=== PATIENT | male | born 1980 | race Caucasian/White ===

== ENCOUNTER 2020-05-25 10:15 | Outpatient (RCR) | payer BC, SELFPAY ==
[2020-04-26 09:51] VITALS: BP 144/90; PULSE 86; RESP 16; TEMP 36.3; BMI 30.7
--- NOTE | 2020-04-26 10:46 | HP.PCM_ITS ---
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 The wound has open and closed over the years when he gets bumped or hit. Most recently it was opened about 2 weeks ago he saw his regular family doctor and was put on Bactrim DS no cultures were obtained at that time. We will obtain x-ray of the appiah make sure that no bone is involved though it does look more superficial and did obtain cultures to determine why he keeps opening. 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 Tobacco abuse. Chronic open wound left appiah Allergies/Adverse Reactions: Allergies No Known Allergies Allergy (Verified 04/26/20 10:06) Lives: Spouse/ Significant Other Smoking Status: Current every day smoker Alcohol: Heavy Review of Systems Constitutional: Denies: Chills, Fever Eyes: Denies: Blurred vision, Drainage, Pain HEENT: Denies: Difficulty Hearing, Difficulty Swallowing, Sore Throat, Visual Changes Cardiovascular: Denies: Chest Pain, Palpitations, Syncope Respiratory: Denies: Cough, Shortness of Breath Gastrointestinal: Denies: Abdominal Pain, Nausea, Vomiting Genitourinary: Denies: Dysuria, Frequency Musculoskeletal: Denies: Joint Pain, Muscle pain Skin: Reports: Wounds - Left appiah wound chronic from 15 years. Denies: Jaundice, Rash Neurological: Denies: Balance problems, Change in Speech, Difficulty swallowing, Focal weakness Psychiatric: Denies: Anxiety, Depression Endocrine: Denies: Change in Body Habitus Hematologic/ Lymphatic: Denies: Adenopathy - Physical Exam Vital Signs Temp Pulse Resp BP 97.3 F L 86 16 144/90 H 04/26/20 09:51 04/26/20 09:51 04/26/20 09:51 04/26/20 09:51 General: Oriented x3, Cooperative, Well developed HEENT: Atraumatic, PERRLA Oral: Moist Mucosa Neck: Supple, No JVD Lungs: Clear to auscultation, Normal air movement Cardiovascular: Regular rate, Regular Rhythm Abdomen: Bowel Sounds Present, Soft, Non Tender, No Hepato-splenomegaly Extremities: No clubbing, Edema Skin: Ulcer/ Wound - Left appiah wound Wound Measurements and Assessment WC - Nurse 1 - General Ulcer Measurement Start: 04/26/20 09:49 Freq: Status: Active Protocol: Activity Type Activity Date Activity User E-Sign Co-Sign Detail Recorded Client Recorded Date Recorded By Document 04/26/20 09:51 [facility] [id number] 04/26/20 10:04 [facility] 04/26/20 09:51 Wound Center Nurse 1 [Ulcer Assessment] #1- L APPIAH -Combined with other wound No -Current Size (cm) - Length 1.4 -Current Size (cm) - Width 1.1 -Current Size (cm) - Depth 0.2 -Total Square Cm 1.54 -Date of Last Picture (Recall this 04/26/20 field) -Photo Taken Yes -Epithelialization None Present -Tunneling No -Undermining/Tunneling No -Circular Undermining No -Exudate Amt Small -Exudate Type Serosanguineous -Wound Margin Distinct, Outline Attached -Granulation Amt Medium (34-66%) -Granulation Quality Red -Slough/Fibrin Yes -Necrosis Amt Medium (34-66%) -Necrotic Tissue Type Adherent Slough -Texture (Paty-wound Skin Appearance) Assessed, Scarring -Moisture (Paty-wound Skin Appearance Assessed ) -Color (Paty-wound Skin Appearance) Assessed -Temperature (Paty-wound Skin No Abnormality Appearance) (Pt Warm) -Tenderness on Palpation (Paty-wound No Skin Appearance) -Ulcer Cleansing Rinsed/ Irrigated with Saline -Foul Odor after Cleansing No -Anesthetic Used 5% Lidocaine Gel [Edema Assessment] -Lower Limb Edema Present Yes -Right Calf (cm) 38.4 -Right Ankle (cm) 22.5 -Left Calf (cm) 38.5 -Left Ankle (cm) 22.1 WC - Nurse 2 - General Ulcer CM Notes Start: 12/02/20 09:49 Freq: Status: Active Protocol: Activity Type Activity Date Activity User E-Sign Co-Sign Detail Recorded Client Recorded Date Recorded By Document 04/26/20 10:19 MW [id number] 04/26/20 10:24 MW 04/26/20 10:19 Wound Center Nurse 2 [Procedure/Treatment] #1- L APPIAH -Time 10:21 -Correct Patient Yes -Correct Side, Site, Position Yes -Correct Procedure Yes -Procedure Performed Yes -Type of Procedure Debridement -Clinical Debridement Subcutaneous -Tissue Removed Subcutaneous -Post Debridement (cm) - Length 1.5 -Post Debridement (cm) - Width 1.2 -Post Debridement (cm) - Depth 0.2 -Total Square (Post) (cm) 1.80 -Area of Debridement (cm) - Length 1.5 -Area of Debridement (cm) - Width 1.2 -Total Square (Area) (cm) 1.80 -Tunneling No -Undermining/Tunneling No -Circular Undermining No -Wound/Ulcer Outcome Not Healed -Ulcer Cleansing Rinsed/ Irrigated with Saline -Foul Odor after Cleansing No -Bioengineered Tissue No -Bleeding Controlled with Pressure -Offloading No -Debridement - Subq, 1st 20sq cm Yes [See Physician Procedure note for Specifics] Pain Scale: 0-10 Numeric [Pain] -Is Patient Pain Free? Yes WC - Nurse 3 - General Ulcer D/C NN Start: 04/26/20 09:49 Freq: Status: Active Protocol: Activity Type Activity Date Activity User E-Sign Co-Sign Detail Recorded Client Recorded Date Recorded By Document 04/26/20 10:28 MW [id number] 04/26/20 10:29 MW 04/26/20 10:28 Wound Care Nurse 3 [Wound Dressing] #1- L APPIAH -Ulcer Cleansing Rinsed/ Irrigated with Saline -Foul Odor after Cleansing No -Negative Pressure Wound Therapy N/A -Primary Dressing Applied Fibracol Plus 4x4,NonAdherent Contact Layer -Primary Dressing Covered/Secured Dry Gauze & with Roll Gauze, Secured with Tape -Fibracol Plus 4x4 1 [Compression Applied] Left -Lotion applied to leg before No compression wrap -Tubular Bandage Double Layer -Size of Tubigrip Used Size D -Size D ($) 1 -Stockings No Pain Scale: 0-10 Numeric [Pain] -Is Patient Pain Free? Yes Teaching: Wound Center [Wound Center Education] (Items with an * have Printed Materials Available- Please identify what is given to patient under the Teaching materials given to patient and caregiver Section. Dressing Your Wound -Person Taught Patient,Family -Teaching Method Discussion, Demonstration -Response to teaching Verbalize understanding WC - Visit Discharge [Visit Discharge Information] -Discharge Condition Stable -Ambulatory Status Ambulatory -Transportation Private Auto -Accompanied by SELF -Medication Reconcilliation completed No & provided to patient/care provider -Clinical Summary of Care Provided Yes Musculoskeletal: No Tenderness to Palpation of Joints or Extremities Lymphatic: No Cervical, Supraclavicular, or Inguinal Adenopathy Neurological: Cranial nerves II-XII grossly intact, Neuro grossly intact Psych/Mental Status: Normal Affect, Appropriate Debridement Note Post-Debridement Measurements/Treatment WC - Nurse 2 - General Ulcer CM Notes Start: 04/26/20 09:49 Freq: Status: Active Protocol: Activity Type Activity Date Activity User E-Sign Co-Sign Detail Recorded Client Recorded Date Recorded By Document 04/26/20 10:19 MW [id number] 04/26/20 10:24 MW 04/26/20 10:19 Wound Center Nurse 2 #1- L APPIAH -Time 10:21 -Correct Patient Yes -Correct Side, Site, Position Yes -Correct Procedure Yes -Procedure Performed Yes -Type of Procedure Debridement -Clinical Debridement Subcutaneous -Tissue Removed Subcutaneous -Post Debridement (cm) - Length 1.5 -Post Debridement (cm) - Width 1.2 -Post Debridement (cm) - Depth 0.2 -Total Square (Post) (cm) 1.80 -Area of Debridement (cm) - Length 1.5 -Area of Debridement (cm) - Width 1.2 -Total Square (Area) (cm) 1.80 -Tunneling No -Undermining/Tunneling No -Circular Undermining No -Wound/Ulcer Outcome Not Healed -Ulcer Cleansing Rinsed/ Irrigated with Saline -Foul Odor after Cleansing No -Bioengineered Tissue No -Bleeding Controlled with Pressure -Offloading No -Debridement - Subq, 1st 20sq cm Yes Pain Scale: 0-10 Numeric Is Patient Pain Free? Yes ERNESTO - Nurse 3 - General Ulcer D/C NN Start: 04/26/20 09:49 Freq: Status: Active Protocol: Activity Type Activity Date Activity User E-Sign Co-Sign Detail Recorded Client Recorded Date Recorded By Document 04/26/20 10:28 MW [id number] 04/26/20 10:29 MW 04/26/20 10:28 Wound Care Nurse 3 #1- L APPIAH -Ulcer Cleansing Rinsed/ Irrigated with Saline -Foul Odor after Cleansing No -Negative Pressure Wound Therapy N/A -Primary Dressing Applied Fibracol Plus 4x4,NonAdherent Contact Layer -Primary Dressing Covered/Secured with Dry Gauze & Roll Gauze, Secured with Tape -Fibracol Plus 4x4 1 Left -Lotion applied to leg before No compression wrap -Tubular Bandage Double Layer -Size of Tubigrip Used Size D -Size D ($) 1 -Stockings No Pain Scale: 0-10 Numeric Is Patient Pain Free? Yes Teaching: Wound Center Dressing Your Wound -Person Taught Patient,Family -Teaching Method Discussion, Demonstration -Response to teaching Verbalize understanding WC - Visit Discharge Discharge Condition Stable Ambulatory Status Ambulatory Transportation Private Auto Accompanied by SELF Medication Reconcilliation completed & No provided to patient/care provider Clinical Summary of Care Provided Yes Wound debrided: Left appiah wound Type of Debridement: Excisional debridement Anesthesia Used: 4% Lidocaine Solution Depth: Down to and including healthy tissue, in the subcutaneous layer Percentage of wound debrided: 100 Instrument Used: 7mm curette Tissue Removed: Fibrin and devitalized tissue Severity: Fat Layer Exposed Amount of bleeding with debridement: Mild Bleeding Controlled with: Pressure Patient tolerated procedure well Assessment/Plan Aerobic and anaerobic cultures obtained Active Problems 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 Alcohol abuser. Tobacco abuser Plan: Wash leg with hip Hibiclens or antibacterial soap. Apply Fibracol to wound base moistened with Adaptic over top cover with gauze and Carmen double layer Tubigrip over top. Follow-up in 1 week
[2020-05-04 15:15] VITALS: BP 139/68; PULSE 92; RESP 18; TEMP 36.6; BMI 30.7
--- NOTE | 2020-05-04 15:50 | PN.PCM_ITS ---
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 The wound has open and closed over the years when he gets bumped or hit. Most recently it was opened about 2 weeks ago he saw his regular family doctor and was put on Bactrim DS no cultures were obtained at that time. We will obtain x-ray of the appiah make sure that no bone is involved though it does look more superficial and did obtain cultures to determine why he keeps opening. Sent history that he drinks a sixpack of beer a day and he smokes 1 pack of cigarettes per day Progress of Wound: Pending x-ray, transfer of care to Chente Perkins DNP, [employer] ENGINE[employer], doing well no new concerns, culture was reviewed and negative - Physical Exam Vital Signs Temp Pulse Resp BP 98 F 92 18 139/68 H 05/04/20 15:15 05/04/20 15:15 05/04/20 15:15 05/04/20 15:15 General: Alert, Oriented x3, Cooperative, No apparent distress HEENT: PERRLA, EOMI Oral: Moist Mucosa Lungs: Clear to auscultation, Normal air movement Cardiovascular: Regular rate, Regular Rhythm Abdomen: Soft, Non Tender Extremities: No clubbing, No cyanosis, Edema - Generalized left lower extremity edema Skin: Ulcer/ Wound - See nursing documentation, slough and devitalized tissue present no signs of infection at this time Wound Measurements and Assessment WC - Nurse 1 - General Ulcer Measurement Start: 04/26/20 09:49 Freq: Status: Active Protocol: Activity Type Activity Date Activity User E-Sign Co-Sign Detail Recorded Client Recorded Date Recorded By Document 05/04/20 15:15 RB [id number] 05/04/20 15:17 RB 05/04/20 15:15 Wound Center Nurse 1 [Ulcer Assessment] #1- L APPIAH -Combined with other wound No -Current Size (cm) - Length 1.4 -Current Size (cm) - Width 1.3 -Current Size (cm) - Depth 0.1 -Total Square Cm 1.82 -Tunneling No -Undermining/Tunneling No -Circular Undermining No -Exudate Amt Small -Exudate Type Serosanguineous -Wound Margin Thickened & Rolled Under -Granulation Amt Medium (34-66%) -Granulation Quality [place] -Slough/Fibrin Yes -Necrosis Amt Medium (34-66%) -Necrotic Tissue Type Adherent Slough -Structure Exposed N/A -Texture (Paty-wound Skin Appearance) Assessed, Scarring -Moisture (Paty-wound Skin Appearance Assessed ) -Color (Paty-wound Skin Appearance) Assessed -Temperature (Paty-wound Skin No Abnormality Appearance) (Pt Warm) -Tenderness on Palpation (Paty-wound No Skin Appearance) -Ulcer Cleansing Wound Cleanser -Foul Odor after Cleansing No -Anesthetic Used 4% Lidocaine Solution [Edema Assessment] -Lower Limb Edema Present Yes -Left Calf (cm) 38.5 -Left Ankle (cm) 22 WC - Nurse 2 - General Ulcer CM Notes Start: 04/26/20 09:49 Freq: Status: Active Protocol: Activity Type Activity Date Activity User E-Sign Co-Sign Detail Recorded Client Recorded Date Recorded By Document 05/04/20 15:27 MW [id number] 05/04/20 15:30 MW 05/04/20 15:27 Wound Center Nurse 2 [Procedure/Treatment] #1- L APPIAH -Time 15:28 -Correct Patient Yes -Correct Side, Site, Position Yes -Correct Procedure Yes -Procedure Performed Yes -Type of Procedure Debridement -Clinical Debridement Subcutaneous -Tissue Removed Subcutaneous -Post Debridement (cm) - Length 1.4 -Post Debridement (cm) - Width 1.3 -Post Debridement (cm) - Depth 0.2 -Total Square (Post) (cm) 1.82 -Area of Debridement (cm) - Length 1.4 -Area of Debridement (cm) - Width 1.3 -Total Square (Area) (cm) 1.82 -Tunneling No -Undermining/Tunneling No -Circular Undermining No -Wound/Ulcer Outcome Not Healed -Ulcer Cleansing Rinsed/ Irrigated with Saline -Foul Odor after Cleansing No -Bioengineered Tissue No -Bleeding Controlled with Pressure -Offloading No -Treatment Response Procedure Tolerated Well -Debridement - Subq, 1st 20sq cm Yes [See Physician Procedure note for Specifics] Pain Scale: 0-10 Numeric [Pain] -Is Patient Pain Free? Yes - Nurse 3 - General Ulcer D/C NN Start: 04/26/20 09:49 Freq: Status: Active Protocol: Activity Type Activity Date Activity User E-Sign Co-Sign Detail Recorded Client Recorded Date Recorded By Document 05/04/20 15:38 DL [id number] 05/04/20 15:40 DL 05/04/20 15:38 Wound Care Nurse 3 [Wound Dressing] #1- L APPIAH -Ulcer Cleansing Rinsed/ Irrigated with Saline -Foul Odor after Cleansing No -Primary Dressing Applied Aquacel Extra -Primary Dressing Covered/Secured Dry Gauze with -Aquacel Extra 1 [Compression Applied] Left -Multi-Layered Wrap Application Multi-Layer Comp - Left ($) [Post Procedure Tolerated] -Treatment Response Procedure Tolerated Well Pain Scale: 0-10 Numeric [Pain] -Is Patient Pain Free? Yes - Visit Discharge [Visit Discharge Information] -Discharge Condition Stable -Ambulatory Status Ambulatory -Transportation Private Auto Neurological: Neuro grossly intact Psych/Mental Status: Normal Affect, Appropriate, Alert and oriented to time, place, person, mood and affect Debridement Note Post-Debridement Measurements/Treatment - Nurse 2 - General Ulcer CM Notes Start: 04/26/20 09:49 Freq: Status: Active Protocol: Activity Type Activity Date Activity User E-Sign Co-Sign Detail Recorded Client Recorded Date Recorded By Document 04/26/20 10:19 MW [id number] 04/26/20 10:24 MW Document 05/04/20 15:27 MW [id number] 05/04/20 15:30 MW 04/26/20 05/04/20 10:19 15:27 Wound Center Nurse 2 #1- L APPIAH -Time 10:21 15:28 -Correct Patient Yes Yes -Correct Side, Site, Position Yes Yes -Correct Procedure Yes Yes -Procedure Performed Yes Yes -Type of Procedure Debridement Debridement -Clinical Debridement Subcutaneous Subcutaneous -Tissue Removed Subcutaneous Subcutaneous -Post Debridement (cm) - Length 1.5 1.4 -Post Debridement (cm) - Width 1.2 1.3 -Post Debridement (cm) - Depth 0.2 0.2 -Total Square (Post) (cm) 1.80 1.82 -Area of Debridement (cm) - Length 1.5 1.4 -Area of Debridement (cm) - Width 1.2 1.3 -Total Square (Area) (cm) 1.80 1.82 -Tunneling No No -Undermining/Tunneling No No -Circular Undermining No No -Wound/Ulcer Outcome Not Healed Not Healed -Ulcer Cleansing Rinsed/ Rinsed/ Irrigated with Irrigated with Saline Saline -Foul Odor after Cleansing No No -Bioengineered Tissue No No -Bleeding Controlled with Pressure Pressure -Offloading No No -Treatment Response Procedure Tolerated Well -Debridement - Subq, 1st 20sq cm Yes Yes Pain Scale: 0-10 Numeric Is Patient Pain Free? Yes Yes - Nurse 3 - General Ulcer D/C NN Start: 04/26/20 09:49 Freq: Status: Active Protocol: Activity Type Activity Date Activity User E-Sign Co-Sign Detail Recorded Client Recorded Date Recorded By Document 04/26/20 10:28 MW [id number] 04/26/20 10:29 MW Document 05/04/20 15:38 DL [id number] 05/04/20 15:40 DL 04/26/20 05/04/20 10:28 15:38 Wound Care Nurse 3 #1- L APPIAH -Ulcer Cleansing Rinsed/ Rinsed/ Irrigated with Irrigated with Saline Saline -Foul Odor after Cleansing No No -Negative Pressure Wound Therapy N/A -Primary Dressing Applied Fibracol Plus Aquacel Extra 4x4,NonAdherent Contact Layer -Primary Dressing Covered/Secured with Dry Gauze & Dry Gauze Roll Gauze, Secured with Tape -Aquacel Extra 1 -Fibracol Plus 4x4 1 Left -Lotion applied to leg before No compression wrap -Multi-Layered Wrap Application Multi-Layer Comp - Left ($) -Tubular Bandage Double Layer -Size of Tubigrip Used Size D -Size D ($) 1 -Stockings No Treatment Response Procedure Tolerated Well Pain Scale: 0-10 Numeric Is Patient Pain Free? Yes Yes Teaching: Wound Center Dressing Your Wound -Person Taught Patient,Family -Teaching Method Discussion, Demonstration -Response to teaching Verbalize understanding WC - Visit Discharge Discharge Condition Stable Stable Ambulatory Status Ambulatory Ambulatory Transportation Private Auto Private Auto Accompanied by SELF Medication Reconcilliation completed & No provided to patient/care provider Clinical Summary of Care Provided Yes Wound debrided: Left lower extremity nonhealing ulcer Laterality: Left Type of Debridement: Excisional debridement Anesthesia Used: 5% Lidocaine Gel Depth: in the subcutaneous layer Percentage of wound debrided: 100 Instrument Used: 3mm curette Tissue Removed: Slough and devitalized tissue Severity: Fat Layer Exposed Amount of bleeding with debridement: Mild Bleeding Controlled with: Pressure Patient tolerated procedure well Assessment/Plan Active Problems 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 Alcohol abuser. Tobacco abuser Plan: The patient was seen and examined at the wound center today and was updated on the plan of care. A subcutaneous debridement was performed today. The patient tolerated the procedure well. The patients wound care will consist of: Application of Aquacel extra and 3M wrap for compression. Wound cultures were collected prior and negative, will hold off on blood work at this time due to cost. Patient educated on the importance of diet on wound healing and instructed to increase protein and vitamin C intake. Patient verbalized understanding. Discussed with patient that he most likely has delayed wound healing due to his significant smoking history and his alcohol abuse, advised cutting back on both if not complete cessation. Patient will follow up at wound healing center in one week or sooner if needed. This note was generated with [employer] (vitals.[employer]) dictation software. It may contain incorrect words, spelling, and punctuation that were not noted in checking the note before signing. [id number]: [id number] Lucy subq tissue 20 sq cm/<
[2020-05-11 15:10] VITALS: BP 143/100; PULSE 79; TEMP 36.1; BMI 30.7
--- NOTE | 2020-05-11 16:31 | PN.PCM_ITS ---
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 The wound has open and closed over the years when he gets bumped or hit. Most recently it was opened about 2 weeks ago he saw his regular family doctor and was put on Bactrim DS no cultures were obtained at that time. We will obtain x-ray of the appiah make sure that no bone is involved though it does look more superficial and did obtain cultures to determine why he keeps opening. Sent history that he drinks a sixpack of beer a day and he smokes 1 pack of cigarettes per day Progress of Wound: Pending x-ray, doing well with 3 m wrap, no new concerns, culture was reviewed and negative - Physical Exam Vital Signs Temp Pulse Resp BP 97.0 F L 79 18 143/100 H 05/11/20 15:10 05/11/20 15:10 05/04/20 15:15 05/11/20 15:10 General: Alert, Oriented x3, Cooperative, No apparent distress HEENT: Atraumatic Oral: Moist Mucosa Lungs: Clear to auscultation, Normal air movement Cardiovascular: Regular rate Abdomen: Soft, Non Tender Extremities: No clubbing, No cyanosis, No edema, Peripheral Pulses Normal Skin: Ulcer/ Wound - See nursing documentation, slough and devitalized tissue present, no signs of obvious infection at this time Wound Measurements and Assessment WC - Nurse 1 - General Ulcer Measurement Start: 04/26/20 09:49 Freq: Status: Active Protocol: Activity Type Activity Date Activity User E-Sign Co-Sign Detail Recorded Client Recorded Date Recorded By Document 05/11/20 15:10 [email or web address] [id number] 05/11/20 15:12 KR 05/11/20 15:10 Wound Center Nurse 1 [Ulcer Assessment] #1- L APPIAH -Current Size (cm) - Length 1.5 -Current Size (cm) - Width 1.5 -Current Size (cm) - Depth 0.1 -Total Square Cm 2.25 -Exudate Amt None Present -Wound Margin Distinct, Outline Attached -Granulation Amt None Present (0 %) -Necrosis Amt Large (67-100%) -Necrotic Tissue Type Adherent Slough -Texture (Paty-wound Skin Appearance) Assessed, Scarring -Moisture (Paty-wound Skin Appearance Assessed,Dry/ ) Scaly -Temperature (Paty-wound Skin No Abnormality Appearance) (Pt Warm) -Tenderness on Palpation (Paty-wound No Skin Appearance) -Ulcer Cleansing soap and water -Foul Odor after Cleansing No -Anesthetic Used 4% Lidocaine Solution [Edema Assessment] -Right Calf (cm) 38 -Right Ankle (cm) 22 WC - Nurse 2 - General Ulcer CM Notes Start: 04/26/20 09:49 Freq: Status: Active Protocol: Activity Type Activity Date Activity User E-Sign Co-Sign Detail Recorded Client Recorded Date Recorded By Document 05/11/20 15:43 MW [id number] 05/11/20 15:45 MW 05/11/20 15:43 Wound Center Nurse 2 [Procedure/Treatment] #1- L APPIAH -Time 15:43 -Correct Patient Yes -Correct Side, Site, Position Yes -Correct Procedure Yes -Procedure Performed Yes -Type of Procedure Debridement -Clinical Debridement Subcutaneous -Tissue Removed Subcutaneous -Post Debridement (cm) - Length 1.3 -Post Debridement (cm) - Width 1.1 -Post Debridement (cm) - Depth 0.2 -Total Square (Post) (cm) 1.43 -Area of Debridement (cm) - Length 1.3 -Area of Debridement (cm) - Width 1.1 -Total Square (Area) (cm) 1.43 -Tunneling No -Undermining/Tunneling No -Circular Undermining No -Wound/Ulcer Outcome Not Healed -Ulcer Cleansing Rinsed/ Irrigated with Saline -Foul Odor after Cleansing No -Bioengineered Tissue No -Bleeding Controlled with Pressure -Offloading No -Treatment Response Procedure Tolerated Well -Debridement - Subq, 1st 20sq cm Yes [See Physician Procedure note for Specifics] Pain Scale: 0-10 Numeric [Pain] -Is Patient Pain Free? Yes ERNESTO - Nurse 3 - General Ulcer D/C NN Start: 04/26/20 09:49 Freq: Status: Active Protocol: Activity Type Activity Date Activity User E-Sign Co-Sign Detail Recorded Client Recorded Date Recorded By Document 05/11/20 15:53 DL [id number] 05/11/20 15:55 DL 05/11/20 15:53 Wound Care Nurse 3 [Wound Dressing] #1- L APPIAH -Ulcer Cleansing Rinsed/ Irrigated with Saline -Foul Odor after Cleansing No -Primary Dressing Applied Promogran Yola Matter -Primary Dressing Covered/Secured Dry Gauze, with Secured with Tape -Promogran Yola Matter 1 [Compression Applied] Left -Multi-Layered Wrap Application Multi-Layer Comp - Left ($) [Post Procedure Tolerated] -Treatment Response Procedure Tolerated Well Pain Scale: 0-10 Numeric [Pain] -Is Patient Pain Free? Yes WC - Visit Discharge [Visit Discharge Information] -Discharge Condition Stable -Ambulatory Status Ambulatory -Transportation Private Auto Neurological: Neuro grossly intact Psych/Mental Status: Normal Affect, Appropriate, Alert and oriented to time, pl fredis, person, mood and affect Debridement Note Post-Debridement Measurements/Treatment WC - Nurse 2 - General Ulcer CM Notes Start: 04/26/20 09:49 Freq: Status: Active Protocol: Activity Type Activity Date Activity User E-Sign Co-Sign Detail Recorded Client Recorded Date Recorded By Document 04/26/20 10:19 MW [id number] 04/26/20 10:24 MW Document 05/04/20 15:27 MW [id number] 05/04/20 15:30 MW Document 05/11/20 15:43 MW [id number] 05/11/20 15:45 MW 04/26/20 05/04/20 05/11/20 10:19 15:27 15:43 Wound Center Nurse 2 #1- L APPIAH -Time 10:21 15:28 15:43 -Correct Patient Yes Yes Yes -Correct Side, Site, Position Yes Yes Yes -Correct Procedure Yes Yes Yes -Procedure Performed Yes Yes Yes -Type of Procedure Debridement Debridement Debridement -Clinical Debridement Subcutaneous Subcutaneous Subcutaneous -Tissue Removed Subcutaneous Subcutaneous Subcutaneous -Post Debridement (cm) - Length 1.5 1.4 1.3 -Post Debridement (cm) - Width 1.2 1.3 1.1 -Post Debridement (cm) - Depth 0.2 0.2 0.2 -Total Square (Post) (cm) 1.80 1.82 1.43 -Area of Debridement (cm) - Length 1.5 1.4 1.3 -Area of Debridement (cm) - Width 1.2 1.3 1.1 -Total Square (Area) (cm) 1.80 1.82 1.43 -Tunneling No No No -Undermining/Tunneling No No No -Circular Undermining No No No -Wound/Ulcer Outcome Not Healed Not Healed Not Healed -Ulcer Cleansing Rinsed/ Rinsed/ Rinsed/ Irrigated with Irrigated with Irrigated with Saline Saline Saline -Foul Odor after Cleansing No No No -Bioengineered Tissue No No No -Bleeding Controlled with Pressure Pressure Pressure -Offloading No No No -Treatment Response Procedure Procedure Tolerated Well Tolerated Well -Debridement - Subq, 1st 20sq cm Yes Yes Yes Pain Scale: 0-10 Numeric Is Patient Pain Free? Yes Yes Yes WC - Nurse 3 - General Ulcer D/C NN Start: 04/26/20 09:49 Freq: Status: Active Protocol: Activity Type Activity Date Activity User E-Sign Co-Sign Detail Recorded Client Recorded Date Recorded By Document 04/26/20 10:28 MW [id number] 04/26/20 10:29 MW Document 05/04/20 15:38 DL [id number] 05/04/20 15:40 DL Document 05/11/20 15:53 DL [id number] 05/11/20 15:55 DL 04/26/20 05/04/20 05/11/20 10:28 15:38 15:53 Wound Care Nurse 3 #1- L APPIAH -Ulcer Cleansing Rinsed/ Rinsed/ Rinsed/ Irrigated with Irrigated with Irrigated with Saline Saline Saline -Foul Odor after Cleansing No No No -Negative Pressure Wound Therapy N/A -Primary Dressing Applied Fibracol Plus Aquacel Extra Promogran 4x4,NonAdherent Yola Matter Contact Layer -Primary Dressing Covered/Secured with Dry Gauze & Dry Gauze Dry Gauze, Roll Gauze, Secured with Secured with Tape Tape -Aquacel Extra 1 -Fibracol Plus 4x4 1 -Promogran Yola Matter 1 Left -Lotion applied to leg before No compression wrap -Multi-Layered Wrap Application Multi-Layer Multi-Layer Comp - Left ($) Comp - Left ($) -Tubular Bandage Double Layer -Size of Tubigrip Used Size D -Size D ($) 1 -Stockings No Treatment Response Procedure Procedure Tolerated Well Tolerated Well Pain Scale: 0-10 Numeric Is Patient Pain Free? Yes Yes Yes Teaching: Wound Center Dressing Your Wound -Person Taught Patient,Family -Teaching Method Discussion, Demonstration -Response to teaching Verbalize understanding WC - Visit Discharge Discharge Condition Stable Stable Stable Ambulatory Status Ambulatory Ambulatory Ambulatory Transportation Private Auto Private Auto Private Auto Accompanied by SELF Medication Reconcilliation completed & No provided to patient/care provider Clinical Summary of Care Provided Yes Wound debrided: Nonhealing ulcer left lower extremity Type of Debridement: Excisional debridement Anesthesia Used: 5% Lidocaine Gel Depth: in the subcutaneous layer Percentage of wound debrided: 100 Instrument Used: 5mm curette Tissue Removed: Slough and devitalized tissue Severity: Fat Layer Exposed Amount of bleeding with debridement: Mild Bleeding Controlled with: Pressure Patient tolerated procedure well Assessment/Plan Active Problems 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 Alcohol abuser. Tobacco abuser Plan: The patient was seen and examined at the wound center today and was upd ated on the plan of care. A subcutaneous debridement was performed today. The patient tolerated the procedure well. The patients wound care will consist of: Application of Yola and 3M wrap for compression. Wound cultures were collected prior and negative, will hold off on blood work at this time due to cost. Patient educated on the importance of diet on wound healing and instructed to increase protein and vitamin C intake. Patient verbalized understanding. Discussed with patient that he most likely has delayed wound healing due to his significant smoking history and his alcohol abuse, advised cutting back on both if not complete cessation. Patient will follow up at wound healing center in one week or sooner if needed. This note was generated with [employer] dictation software. It may contain incorrect words, spelling, and punctuation that were not noted in checking the note before signing. [id number]: [id number] Lucy subq tissue 20 sq cm/<
[2020-05-18 09:19] VITALS: BP 127/64; PULSE 99; RESP 18; TEMP 36.8; BMI 30.7
--- NOTE | 2020-05-18 11:09 | PN.PCM_ITS ---
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 [employer] approximately 15 years ago and injured his left appiah at that time. The wound has open and closed over the years when he gets bumped or hit. Most recently it was opened about 2 weeks ago he saw his regular family doctor and was put on Bactrim DS no cultures were obtained at that time. We will obtain x-ray of the appiah make sure that no bone is involved though it does look more superficial and did obtain cultures to determine why he keeps opening. Sent history that he drinks a sixpack of beer a day and he smokes 1 pack of cigarettes per day Progress of Wound: Courtesy visit for Chente Perkins NP. New concerns at this time. Improving. - Physical Exam Vital Signs Temp Pulse Resp BP 98.3 F 99 18 127/64 H 05/18/20 09:19 05/18/20 09:19 05/18/20 09:19 05/18/20 09:19 General: Alert, Oriented x3, Cooperative, No apparent distress HEENT: Atraumatic, Normocephalic Oral: Moist Mucosa Neck: Supple Lungs: Normal air movement Extremities: No cyanosis, Edema Skin: Ulcer/ Wound Wound Measurements and Assessment WC - Nurse 1 - General Ulcer Measurement Start: 04/26/20 09:49 Freq: Status: Active Protocol: Activity Type Activity Date Activity User E-Sign Co-Sign Detail Recorded Client Recorded Date Recorded By Document 05/18/20 09:19 DL [id number] 05/18/20 09:28 DL 05/18/20 09:19 Wound Center Nurse 1 [Ulcer Assessment] #1- L APPIAH -Current Size (cm) - Length 1 -Current Size (cm) - Width 0.9 -Current Size (cm) - Depth 0.1 -Total Square Cm 0.9 -Photo Taken No -Exudate Amt Small -Exudate Type Serosanguineous -Wound Margin Distinct, Outline Attached -Granulation Amt Large (67-100%) -Necrosis Amt None Present (0 %) -Structure Exposed N/A -Texture (Paty-wound Skin Appearance) Scarring -Moisture (Paty-wound Skin Appearance No Abnormality ) -Color (Paty-wound Skin Appearance) Hemosiderin Staining -Temperature (Paty-wound Skin No Abnormality Appearance) (Pt Warm) -Tenderness on Palpation (Paty-wound No Skin Appearance) -Ulcer Cleansing Rinsed/ Irrigated with Saline -Foul Odor after Cleansing No -Anesthetic Used 5% Lidocaine Gel [Edema Assessment] -Left Calf (cm) 36 -Left Ankle (cm) 21 WC - Nurse 2 - General Ulcer CM Notes Start: 04/26/20 09:49 Freq: Status: Active Protocol: Activity Type Activity Date Activity User E-Sign Co-Sign Detail Recorded Client Recorded Date Recorded By Document 05/18/20 09:48 MW [id number] 05/18/20 09:50 MW 05/18/20 09:48 Wound Center Nurse 2 [Procedure/Treatment] #1- L APPIAH -Time 09:48 -Correct Patient Yes -Correct Side, Site, Position Yes -Correct Procedure Yes -Procedure Performed Yes -Type of Procedure Debridement -Clinical Debridement Subcutaneous -Tissue Removed Subcutaneous -Post Debridement (cm) - Length 1.0 -Post Debridement (cm) - Width 0.9 -Post Debridement (cm) - Depth 0.1 -Total Square (Post) (cm) 0.90 -Area of Debridement (cm) - Length 1.0 -Area of Debridement (cm) - Width 0.9 -Total Square (Area) (cm) 0.90 -Tunneling No -Undermining/Tunneling No -Circular Undermining No -Wound/Ulcer Outcome Not Healed -Ulcer Cleansing Rinsed/ Irrigated with Saline -Foul Odor after Cleansing No -Bioengineered Tissue No -Bleeding Controlled with Pressure -Offloading No -Treatment Response Procedure Tolerated Well -Debridement - Subq, 1st 20sq cm Yes [See Physician Procedure note for Specifics] Pain Scale: 0-10 Numeric [Pain] -Is Patient Pain Free? Yes Musculoskeletal: No Muscle Wasting Neurological: Cranial nerves II-XII grossly intact Psych/Mental Status: Normal Affect Debridement Note Post-Debridement Measurements/Treatment WC - Nurse 2 - General Ulcer CM Notes Start: 04/26/20 09:49 Freq: Status: Active Protocol: Activity Type Activity Date Activity User E-Sign Co-Sign Detail Recorded Client Recorded Date Recorded By Document 04/26/20 10:19 MW [id number] 04/26/20 10:24 MW Document 05/04/20 15:27 MW [id number] 05/04/20 15:30 MW Document 05/11/20 15:43 MW [id number] 05/11/20 15:45 MW Document 05/18/20 09:48 MW [id number] 05/18/20 09:50 MW 04/26/20 05/04/20 05/11/20 10:19 15:27 15:43 Wound Center Nurse 2 #1- L APPIAH -Time 10:21 15:28 15:43 -Correct Patient Yes Yes Yes -Correct Side, Site, Position Yes Yes Yes -Correct Procedure Yes Yes Yes -Procedure Performed Yes Yes Yes -Type of Procedure Debridement Debridement Debridement -Clinical Debridement Subcutaneous Subcutaneous Subcutaneous -Tissue Removed Subcutaneous Subcutaneous Subcutaneous -Post Debridement (cm) - Length 1.5 1.4 1.3 -Post Debridement (cm) - Width 1.2 1.3 1.1 -Post Debridement (cm) - Depth 0.2 0.2 0.2 -Total Square (Post) (cm) 1.80 1.82 1.43 -Area of Debridement (cm) - Length 1.5 1.4 1.3 -Area of Debridement (cm) - Width 1.2 1.3 1.1 -Total Square (Area) (cm) 1.80 1.82 1.43 -Tunneling No No No -Undermining/Tunneling No No No -Circular Undermining No No No -Wound/Ulcer Outcome Not Healed Not Healed Not Healed -Ulcer Cleansing Rinsed/ Rinsed/ Rinsed/ Irrigated with Irrigated with Irrigated with Saline Saline Saline -Foul Odor after Cleansing No No No -Bioengineered Tissue No No No -Bleeding Controlled with Pressure Pressure Pressure -Offloading No No No -Treatment Response Procedure Procedure Tolerated Well Tolerated Well -Debridement - Subq, 1st 20sq cm Yes Yes Yes Pain Scale: 0-10 Numeric Is Patient Pain Free? Yes Yes Yes 05/18/20 09:48 Wound Center Nurse 2 #1- L APPIAH -Time 09:48 -Correct Patient Yes -Correct Side, Site, Position Yes -Correct Procedure Yes -Procedure Performed Yes -Type of Procedure Debridement -Clinical Debridement Subcutaneous -Tissue Removed Subcutaneous -Post Debridement (cm) - Length 1.0 -Post Debridement (cm) - Width 0.9 -Post Debridement (cm) - Depth 0.1 -Total Square (Post) (cm) 0.90 -Area of Debridement (cm) - Length 1.0 -Area of Debridement (cm) - Width 0.9 -Total Square (Area) (cm) 0.90 -Tunneling No -Undermining/Tunneling No -Circular Undermining No -Wound/Ulcer Outcome Not Healed -Ulcer Cleansing Rinsed/ Irrigated with Saline -Foul Odor after Cleansing No -Bioengineered Tissue No -Bleeding Controlled with Pressure -Offloading No -Treatment Response Procedure Tolerated Well -Debridement - Subq, 1st 20sq cm Yes Pain Scale: 0-10 Numeric Is Patient Pain Free? Yes WC - Nurse 3 - General Ulcer D/C NN Start: 04/26/20 09:49 Freq: Status: Active Protocol: Activity Type Activity Date Activity User E-Sign Co-Sign Detail Recorded Client Recorded Date Recorded By Document 04/26/20 10:28 MW [id number] 04/26/20 10:29 MW Document 05/04/20 15:38 DL [id number] 05/04/20 15:40 DL Document 05/11/20 15:53 DL [id number] 05/11/20 15:55 DL 04/26/20 05/04/20 05/11/20 10:28 15:38 15:53 Wound Care Nurse 3 #1- L APPIAH -Ulcer Cleansing Rinsed/ Rinsed/ Rinsed/ Irrigated with Irrigated with Irrigated with Saline Saline Saline -Foul Odor after Cleansing No No No -Negative Pressure Wound Therapy N/A -Primary Dressing Applied Fibracol Plus Aquacel Extra Promogran 4x4,NonAdherent Yola Matter Contact Layer -Primary Dressing Covered/Secured with Dry Gauze & Dry Gauze Dry Gauze, Roll Gauze, Secured with Secured with Tape Tape -Aquacel Extra 1 -Fibracol Plus 4x4 1 -Promogran Yola Matter 1 Left -Lotion applied to leg before No compression wrap -Multi-Layered Wrap Application Multi-Layer Multi-Layer Comp - Left ($) Comp - Left ($) -Tubular Bandage Double Layer -Size of Tubigrip Used Size D -Size D ($) 1 -Stockings No Treatment Response Procedure Procedure Tolerated Well Tolerated Well Pain Scale: 0-10 Numeric Is Patient Pain Free? Yes Yes Yes Teaching: Wound Center Dressing Your Wound -Person Taught Patient,Family -Teaching Method Discussion, Demonstration -Response to teaching Verbalize understanding WC - Visit Discharge Discharge Condition Stable Stable Stable Ambulatory Status Ambulatory Ambulatory Ambulatory Transportation Private Auto Private Auto Private Auto Accompanied by SELF Medication Reconcilliation completed & No provided to patient/care provider Clinical Summary of Care Provided Yes Wound debrided: Left leg Type of Debridement: Excisional debridement Anesthesia Used: 4% Lidocaine Solution Depth: Down to and including healthy tissue, in the subcutaneous layer Percentage of wound debrided: 100 Instrument Used: 5mm curette Tissue Removed: Slough and devitalized tissue Severity: Fat Layer Exposed Amount of bleeding with debridement: Mild Bleeding Controlled with: Pressure Patient tolerated procedure well Assessment/Plan Active Problems 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 Alcohol abuser. Tobacco abuser Plan: Debridement done as documented above. Procedure was well-tolerated. Improving. Continue Promogran with 3M wrap. Leave in place for a week. Elevate lower extremities when seated and in bed. Increase protein intake. Continue other wound care modalities. Follow-up in a week. His questions were answered and he was advised to call with any further questions or concerns. This note was generated with [employer] dictation software. It may contain incorrect words, spelling, and punctuation that were not noted in checking the note before signing. 111xxx-[id number]: [id number] Lucy subq tissue 20 sq cm/<
[2020-05-25 10:22] VITALS: BP 129/86; PULSE 99; RESP 18; TEMP 36.6; BMI 30.7
--- NOTE | 2020-05-25 11:13 | PCM.WC.PN ---
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 The wound has open and closed over the years when he gets bumped or hit. Most recently it was opened about 2 weeks ago he saw his regular family doctor and was put on Bactrim DS no cultures were obtained at that time. We will obtain x-ray of the appiah make sure that no bone is involved though it does look more superficial and did obtain cultures to determine why he keeps opening. Sent history that he drinks a sixpack of beer a day and he smokes 1 pack of cigarettes per day Progress of Wound: Courtesy visit for Chente Perkins NP. New concerns at this time. Improving. - Physical Exam Vital Signs Temp Pulse Resp BP 98 F 99 18 129/86 H 05/25/20 10:22 05/25/20 10:22 05/25/20 10:22 05/25/20 10:22 General: Alert, Oriented x3, Cooperative, No apparent distress HEENT: Atraumatic, Normocephalic Oral: Moist Mucosa Neck: Supple Lungs: Normal air movement Extremities: No cyanosis Skin: Ulcer/ Wound Wound Measurements and Assessment WC - Nurse 1 - General Ulcer Measurement Start: 04/26/20 09:49 Freq: Status: Active Protocol: Activity Type Activity Date Activity User E-Sign Co-Sign Detail Recorded Client Recorded Date Recorded By Document 05/25/20 10:22 DL [id number] 05/25/20 10:29 DL 05/25/20 10:22 Wound Center Nurse 1 [Ulcer Assessment] #1- L APPIAH -Current Size (cm) - Length 1 -Current Size (cm) - Width 0.8 -Current Size (cm) - Depth 0.2 -Total Square Cm 0.8 -Photo Taken No -Exudate Amt None Present -Wound Margin Distinct, Outline Attached -Granulation Amt Large (67-100%) -Granulation Quality Red -Necrosis Amt Small (1-33%) -Necrotic Tissue Type Adherent Slough -Structure Exposed N/A -Texture (Paty-wound Skin Appearance) Scarring -Moisture (Paty-wound Skin Appearance No Abnormality ) -Color (Paty-wound Skin Appearance) No Abnormality -Temperature (Paty-wound Skin No Abnormality Appearance) (Pt Warm) -Tenderness on Palpation (Paty-wound No Skin Appearance) -Ulcer Cleansing Wound Cleanser -Foul Odor after Cleansing No -Anesthetic Used 4% Lidocaine Solution [Edema Assessment] -Left Calf (cm) 36 -Left Ankle (cm) 22.2 WC - Nurse 2 - General Ulcer CM Notes Start: 04/26/20 09:49 Freq: Status: Active Protocol: Activity Type Activity Date Activity User E-Sign Co-Sign Detail Recorded Client Recorded Date Recorded By Document 05/25/20 10:42 MW [id number] 05/25/20 10:44 MW 05/25/20 10:42 Wound Center Nurse 2 [Procedure/Treatment] #1- L APPIAH -Time 10:43 -Correct Patient Yes -Correct Side, Site, Position Yes -Correct Procedure Yes -Procedure Performed Yes -Type of Procedure Debridement -Clinical Debridement Subcutaneous -Tissue Removed Subcutaneous -Post Debridement (cm) - Length 0.6 -Post Debridement (cm) - Width 0.7 -Post Debridement (cm) - Depth 0.1 -Total Square (Post) (cm) 0.42 -Area of Debridement (cm) - Length 0.6 -Area of Debridement (cm) - Width 0.7 -Total Square (Area) (cm) 0.42 -Tunneling No -Undermining/Tunneling No -Circular Undermining No -Wound/Ulcer Outcome Not Healed -Ulcer Cleansing Rinsed/ Irrigated with Saline -Foul Odor after Cleansing No -Bioengineered Tissue No -Bleeding Controlled with Pressure -Offloading No -Treatment Response Procedure Tolerated Well -Debridement - Subq, 1st 20sq cm Yes [See Physician Procedure note for Specifics] Pain Scale: 0-10 Numeric [Pain] -Is Patient Pain Free? Yes ERNESTO - Nurse 3 - General Ulcer D/C NN Start: 04/26/20 09:49 Freq: Status: Active Protocol: Activity Type Activity Date Activity User E-Sign Co-Sign Detail Recorded Client Recorded Date Recorded By Document 05/25/20 10:52 DL [id number] 05/25/20 10:53 DL 05/25/20 10:52 Wound Care Nurse 3 [Wound Dressing] #1- L APPIAH -Ulcer Cleansing Rinsed/ Irrigated with Saline -Foul Odor after Cleansing No -Primary Dressing Applied Promogran Yola Matter -Primary Dressing Covered/Secured Dry Gauze with -Promogran Yola Matter 1 [Compression Applied] Left -Multi-Layered Wrap Application Multi-Layer Comp - Left ($) [Post Procedure Tolerated] -Treatment Response Procedure Tolerated Well Pain Scale: 0-10 Numeric [Pain] -Is Patient Pain Free? Yes WC - Visit Discharge [Visit Discharge Information] -Discharge Condition Stable -Ambulatory Status Ambulatory -Transportation Private Auto Musculoskeletal: No Muscle Wasting Neurological: Cranial nerves II-XII grossly intact Psych/Mental Status: Normal Affect Debridement Note Post-Debridement Measurements/Treatment WC - Nurse 2 - General Ulcer CM Notes Start: 04/26/20 09:49 Freq: Status: Active Protocol: Activity Type Activity Date Activity User E-Sign Co-Sign Detail Recorded Client Recorded Date Recorded By Document 04/26/20 10:19 MW [id number] 04/26/20 10:24 MW Document 05/04/20 15:27 MW [id number] 05/04/20 15:30 MW Document 05/11/20 15:43 MW [id number] 05/11/20 15:45 MW Document 05/18/20 09:48 MW [id number] 05/18/20 09:50 MW Document 05/25/20 10:42 MW [id number] 05/25/20 10:44 MW 04/26/20 05/04/20 05/11/20 10:19 15:27 15:43 Wound Center Nurse 2 #1- L APPIAH -Time 10:21 15:28 15:43 -Correct Patient Yes Yes Yes -Correct Side, Site, Position Yes Yes Yes -Correct Procedure Yes Yes Yes -Procedure Performed Yes Yes Yes -Type of Procedure Debridement Debridement Debridement -Clinical Debridement Subcutaneous Subcutaneous Subcutaneous -Tissue Removed Subcutaneous Subcutaneous Subcutaneous -Post Debridement (cm) - Length 1.5 1.4 1.3 -Post Debridement (cm) - Width 1.2 1.3 1.1 -Post Debridement (cm) - Depth 0.2 0.2 0.2 -Total Square (Post) (cm) 1.80 1.82 1.43 -Area of Debridement (cm) - Length 1.5 1.4 1.3 -Area of Debridement (cm) - Width 1.2 1.3 1.1 -Total Square (Area) (cm) 1.80 1.82 1.43 -Tunneling No No No -Undermining/Tunneling No No No -Circular Undermining No No No -Wound/Ulcer Outcome Not Healed Not Healed Not Healed -Ulcer Cleansing Rinsed/ Rinsed/ Rinsed/ Irrigated with Irrigated with Irrigated with Saline Saline Saline -Foul Odor after Cleansing No No No -Bioengineered Tissue No No No -Bleeding Controlled with Pressure Pressure Pressure -Offloading No No No -Treatment Response Procedure Procedure Tolerated Well Tolerated Well -Debridement - Subq, 1st 20sq cm Yes Yes Yes Pain Scale: 0-10 Numeric Is Patient Pain Free? Yes Yes Yes 05/18/20 05/25/20 09:48 10:42 Wound Center Nurse 2 #1- L APPIAH -Time 09:48 10:43 -Correct Patient Yes Yes -Correct Side, Site, Position Yes Yes -Correct Procedure Yes Yes -Procedure Performed Yes Yes -Type of Procedure Debridement Debridement -Clinical Debridement Subcutaneous Subcutaneous -Tissue Removed Subcutaneous Subcutaneous -Post Debridement (cm) - Length 1.0 0.6 -Post Debridement (cm) - Width 0.9 0.7 -Post Debridement (cm) - Depth 0.1 0.1 -Total Square (Post) (cm) 0.90 0.42 -Area of Debridement (cm) - Length 1.0 0.6 -Area of Debridement (cm) - Width 0.9 0.7 -Total Square (Area) (cm) 0.90 0.42 -Tunneling No No -Undermining/Tunneling No No -Circular Undermining No No -Wound/Ulcer Outcome Not Healed Not Healed -Ulcer Cleansing Rinsed/ Rinsed/ Irrigated with Irrigated with Saline Saline -Foul Odor after Cleansing No No -Bioengineered Tissue No No -Bleeding Controlled with Pressure Pressure -Offloading No No -Treatment Response Procedure Procedure Tolerated Well Tolerated Well -Debridement - Subq, 1st 20sq cm Yes Yes Pain Scale: 0-10 Numeric Is Patient Pain Free? Yes Yes WC - Nurse 3 - General Ulcer D/C NN Start: 04/26/20 09:49 Freq: Status: Active Protocol: Activity Type Activity Date Activity User E-Sign Co-Sign Detail Recorded Client Recorded Date Recorded By Document 04/26/20 10:28 MW [id number] 04/26/20 10:29 MW Document 05/04/20 15:38 DL [id number] 05/04/20 15:40 DL Document 05/11/20 15:53 DL [id number] 05/11/20 15:55 DL Document 05/25/20 10:52 DL [id number] 05/25/20 10:53 DL 04/26/20 05/04/20 05/11/20 10:28 15:38 15:53 Wound Care Nurse 3 #1- L APPIAH -Ulcer Cleansing Rinsed/ Rinsed/ Rinsed/ Irrigated with Irrigated with Irrigated with Saline Saline Saline -Foul Odor after Cleansing No No No -Negative Pressure Wound Therapy N/A -Primary Dressing Applied Fibracol Plus Aquacel Extra Promogran 4x4,NonAdherent Yola Matter Contact Layer -Primary Dressing Covered/Secured with Dry Gauze & Dry Gauze Dry Gauze, Roll Gauze, Secured with Secured with Tape Tape -Aquacel Extra 1 -Fibracol Plus 4x4 1 -Promogran Yola Matter 1 Left -Lotion applied to leg before No compression wrap -Multi-Layered Wrap Application Multi-Layer Multi-Layer Comp - Left ($) Comp - Left ($) -Tubular Bandage Double Layer -Size of Tubigrip Used Size D -Size D ($) 1 -Stockings No Treatment Response Procedure Procedure Tolerated Well Tolerated Well Pain Scale: 0-10 Numeric Is Patient Pain Free? Yes Yes Yes Teaching: Wound Center Dressing Your Wound -Person Taught Patient,Family -Teaching Method Discussion, Demonstration -Response to teaching Verbalize understanding WC - Visit Discharge Discharge Condition Stable Stable Stable Ambulatory Status Ambulatory Ambulatory Ambulatory Transportation Private Auto Private Auto Private Auto Accompanied by SELF Medication Reconcilliation completed & No provided to patient/care provider Clinical Summary of Care Provided Yes 05/25/20 10:52 Wound Care Nurse 3 #1- L APPIAH -Ulcer Cleansing Rinsed/ Irrigated with Saline -Foul Odor after Cleansing No -Negative Pressure Wound Therapy -Primary Dressing Applied Promogran Yola Matter -Primary Dressing Covered/Secured with Dry Gauze -Aquacel Extra -Fibracol Plus 4x4 -Promogran Yola Matter 1 Left -Lotion applied to leg before compression wrap -Multi-Layered Wrap Application Multi-Layer Comp - Left ($) -Tubular Bandage -Size of Tubigrip Used -Size D ($) -Stockings Treatment Response Procedure Tolerated Well Pain Scale: 0-10 Numeric Is Patient Pain Free? Yes Teaching: Wound Center Dressing Your Wound -Person Taught -Teaching Method -Response to teaching WC - Visit Discharge Discharge Condition Stable Ambulatory Status Ambulatory Transportation Private Auto Accompanied by Medication Reconcilliation completed & provided to patient/care provider Clinical Summary of Care Provided Wound debrided: Left lower extremity Type of Debridement: Excisional debridement Anesthesia Used: 4% Lidocaine Solution Depth: Down to and including healthy tissue, in the subcutaneous layer Percentage of wound debrided: 100 Instrument Used: 5mm curette Tissue Removed: Slough and devitalized tissue Severity: Fat Layer Exposed Amount of bleeding with debridement: Mild Bleeding Controlled with: Pressure Patient tolerated procedure well Assessment/Plan Active Problems Nonhealing nonsurgical wound with fat layer exposed (Chronic) ETOH abuse (Acute) Tobacco dependence (Acute) Ulcer of left lower extremity with fat layer exposed (Chronic) Assessment: Nonhealing nonsurgical chronic wound of the left appiah. Alcohol abuser. Tobacco abuser Plan: Debridement done as documented above. Procedure was well-tolerated. Improving. Continue Promogran with 3M wrap. Leave in place for a week. Elevate lower extremities when seated and in bed. Increase protein intake. Continue other wound care modalities. Follow-up in a week. His questions were answered and he was advised to call with any further questions or concerns. This note was generated with [employer] dictation software. It may contain incorrect words, spelling, and punctuation that were not noted in checking the note before signing. [id number]: [id number] Lucy subq tissue 20 sq cm/<
== END 2020-05-25 23:59 ==
LOC: WC 10:15
PROVIDERS: PCP Nurse Practitioner Primary Care; Referring Provider Nurse Practitioner Primary Care; Visit Provider Nurse Practitioner
DX: L97.922 Non-pressure chronic ulcer of unspecified part of left lower leg with fat layer exposed (principal); S81.802A Unspecified open wound, left lower leg, initial encounter; F10.10 Alcohol abuse, uncomplicated; F17.210 Nicotine dependence, cigarettes, uncomplicated
CPT/HCPCS: 11042; 29581; 87070; 87075; 87205; 99203; G0463

== ENCOUNTER 2020-06-08 15:15 | Outpatient (RCR) | payer BC, SELFPAY ==
[2020-05-26 00:08] VITALS: BP 129/86; PULSE 99; RESP 18; TEMP 36.6
[2020-06-01 15:17] VITALS: BP 142/95; PULSE 104; RESP 16; TEMP 36.4; BMI 30.7
--- NOTE | 2020-06-01 21:17 | PCM.WC.PN ---
(1) Ulcer of left lower extremity with fat layer exposed Status: Chronic Code(s): L97.922 - Non-pressure chronic ulcer of unspecified part of left lower leg with fat layer exposed (2) ETOH abuse Status: Acute Code(s): F10.10 - Alcohol abuse, uncomplicated (3) Tobacco dependence Status: Acute Code(s): F17.200 - Nicotine dependence, unspecified, uncomplicated Type of Wound Date of Service: 06/01/20 Chief Complaint: Left appiah wound History of Wound: 39-year-old white male graduate from [employer] approximately 15 years ago and injured his left appiah at that time. The wound has open and closed over the years when he gets bumped or hit. Most recently it was opened about 2 weeks ago he saw his regular family doctor and was put on Bactrim DS no cultures were obtained at that time. We will obtain x-ray of the appiah make sure that no bone is involved though it does look more superficial and did obtain cultures to determine why he keeps opening. Sent history that he drinks a sixpack of beer a day and he smokes 1 pack of cigarettes per day Progress of Wound: New concerns at this time. Improving. - Physical Exam Vital Signs Temp Pulse Resp BP 97.6 F L 104 H 16 142/95 H 06/01/20 15:17 06/01/20 15:17 06/01/20 15:17 06/01/20 15:17 General: Alert, Oriented x3, Cooperative, No apparent distress HEENT: Atraumatic Oral: Moist Mucosa Neck: Supple Lungs: Clear to auscultation, Normal air movement Cardiovascular: Regular rate Abdomen: Soft, Non Tender Extremities: No clubbing, No cyanosis, No edema Skin: Ulcer/ Wound - see nursing documentation, slough and devitalized tissue present, no signs of infection at this time Wound Measurements and Assessment WC - Nurse 1 - General Ulcer Measurement Start: 06/01/20 15:17 Freq: Status: Active Protocol: Activity Type Activity Date Activity User E-Sign Co-Sign Detail Recorded Client Recorded Date Recorded By Document 06/01/20 15:17 [facility] [id number] 06/01/20 15:23 [facility] 06/01/20 15:17 Wound Center Nurse 1 [Ulcer Assessment] #1- L APPIAH -Combined with other wound No -Current Size (cm) - Length 0.8 -Current Size (cm) - Width 0.5 -Current Size (cm) - Depth 0.1 -Total Square Cm 0.40 -Photo Taken No -Epithelialization None Present -Tunneling No -Undermining/Tunneling No -Circular Undermining No -Exudate Amt None Present -Wound Margin Distinct, Outline Attached -Granulation Amt None Present (0 %) -Slough/Fibrin Yes -Necrosis Amt Large (67-100%) -Necrotic Tissue Type Eschar -Texture (Paty-wound Skin Appearance) Assessed, Scarring -Moisture (Paty-wound Skin Appearance Assessed,Dry/ ) Scaly -Color (Paty-wound Skin Appearance) Assessed -Temperature (Paty-wound Skin No Abnormality Appearance) (Pt Warm) -Tenderness on Palpation (Paty-wound No Skin Appearance) -Ulcer Cleansing Rinsed/ Irrigated with Saline -Foul Odor after Cleansing No -Anesthetic Used 4% Lidocaine Solution [Edema Assessment] -Lower Limb Edema Present Yes -Left Calf (cm) 38.8 -Left Ankle (cm) 22.5 WC - Nurse 2 - General Ulcer CM Notes Start: 06/01/20 15:17 Freq: Status: Active Protocol: Activity Type Activity Date Activity User E-Sign Co-Sign Detail Recorded Client Recorded Date Recorded By Document 06/01/20 16:04 MW [id number] 06/01/20 16:07 MW 06/01/20 16:04 Wound Center Nurse 2 [Procedure/Treatment] #1- L APPIAH -Time 16:05 -Correct Patient Yes -Correct Side, Site, Position Yes -Correct Procedure Yes -Procedure Performed Yes -Type of Procedure Debridement -Clinical Debridement Subcutaneous -Tissue Removed Subcutaneous -Post Debridement (cm) - Length 0.9 -Post Debridement (cm) - Width 0.7 -Post Debridement (cm) - Depth 0.1 -Total Square (Post) (cm) 0.63 -Area of Debridement (cm) - Length 0.9 -Area of Debridement (cm) - Width 0.7 -Total Square (Area) (cm) 0.63 -Tunneling No -Undermining/Tunneling No -Circular Undermining No -Wound/Ulcer Outcome Not Healed -Ulcer Cleansing Rinsed/ Irrigated with Saline -Foul Odor after Cleansing No -Bioengineered Tissue No -Bleeding Controlled with Pressure -Offloading No -Treatment Response Procedure Tolerated Well -Debridement - Subq, 1st 20sq cm Yes [See Physician Procedure note for Specifics] Pain Scale: 0-10 Numeric [Pain] -Is Patient Pain Free? Yes - Nurse 3 - General Ulcer D/C NN Start: 06/01/20 15:17 Freq: Status: Active Protocol: Activity Type Activity Date Activity User E-Sign Co-Sign Detail Recorded Client Recorded Date Recorded By Document 06/01/20 16:07 MW [id number] 06/01/20 16:08 MW 06/01/20 16:07 Wound Care Nurse 3 [Wound Dressing] #1- L APPIAH -Ulcer Cleansing Rinsed/ Irrigated with Saline -Foul Odor after Cleansing No -Negative Pressure Wound Therapy N/A -Primary Dressing Applied Aquacel Extra -Primary Dressing Covered/Secured Dry Gauze with -Aquacel Extra 1 [Compression Applied] Left -Lotion applied to leg before No compression wrap -Multi-Layered Wrap Application Multi-Layer Comp - Left ($) [Post Procedure Tolerated] -Treatment Response Procedure Tolerated Well Pain Scale: 0-10 Numeric [Pain] -Is Patient Pain Free? Yes Teaching: Wound Center [Wound Center Education] (Items with an * have Printed Materials Available- Please identify what is given to patient under the Teaching materials given to patient and caregiver Section. Dressing Your Wound -Person Taught Patient -Teaching Method Discussion -Response to teaching Verbalize understanding - Visit Discharge [Visit Discharge Information] -Discharge Condition Stable -Ambulatory Status Ambulatory -Transportation Private Auto -Accompanied by SELF -Medication Reconcilliation completed No & provided to patient/care provider -Clinical Summary of Care Provided Yes Neurological: Neuro grossly intact Psych/Mental Status: Normal Affect, Appropriate, Alert and oriented to time, place, person, mood and affect Debridement Note Post-Debridement Measurements/Treatment - Nurse 2 - General Ulcer CM Notes Start: 06/01/20 15:17 Freq: Status: Active Protocol: Activity Type Activity Date Activity User E-Sign Co-Sign Detail Recorded Client Recorded Date Recorded By Document 06/01/20 16:04 MW [id number] 06/01/20 16:07 MW 06/01/20 16:04 Wound Center Nurse 2 #1- L APPIAH -Time 16:05 -Correct Patient Yes -Correct Side, Site, Position Yes -Correct Procedure Yes -Procedure Performed Yes -Type of Procedure Debridement -Clinical Debridement Subcutaneous -Tissue Removed Subcutaneous -Post Debridement (cm) - Length 0.9 -Post Debridement (cm) - Width 0.7 -Post Debridement (cm) - Depth 0.1 -Total Square (Post) (cm) 0.63 -Area of Debridement (cm) - Length 0.9 -Area of Debridement (cm) - Width 0.7 -Total Square (Area) (cm) 0.63 -Tunneling No -Undermining/Tunneling No -Circular Undermining No -Wound/Ulcer Outcome Not Healed -Ulcer Cleansing Rinsed/ Irrigated with Saline -Foul Odor after Cleansing No -Bioengineered Tissue No -Bleeding Controlled with Pressure -Offloading No -Treatment Response Procedure Tolerated Well -Debridement - Subq, 1st 20sq cm Yes Pain Scale: 0-10 Numeric Is Patient Pain Free? Yes - Nurse 3 - General Ulcer D/C NN Start: 06/01/20 15:17 Freq: Status: Active Protocol: Activity Type Activity Date Activity User E-Sign Co-Sign Detail Recorded Client Recorded Date Recorded By Document 06/01/20 16:07 MW [id number] 06/01/20 16:08 MW 06/01/20 16:07 Wound Care Nurse 3 #1- L APPIAH -Ulcer Cleansing Rinsed/ Irrigated with Saline -Foul Odor after Cleansing No -Negative Pressure Wound Therapy N/A -Primary Dressing Applied Aquacel Extra -Primary Dressing Covered/Secured with Dry Gauze -Aquacel Extra 1 Left -Lotion applied to leg before No compression wrap -Multi-Layered Wrap Application Multi-Layer Comp - Left ($) Treatment Response Procedure Tolerated Well Pain Scale: 0-10 Numeric Is Patient Pain Free? Yes Teaching: Wound Center Dressing Your Wound -Person Taught Patient -Teaching Method Discussion -Response to teaching Verbalize understanding WC - Visit Discharge Discharge Condition Stable Ambulatory Status Ambulatory Transportation Private Auto Accompanied by SELF Medication Reconcilliation completed & No provided to patient/care provider Clinical Summary of Care Provided Yes Wound debrided: Left lower extremtiy ulcer Laterality: Left Type of Debridement: Excisional debridement Anesthesia Used: 5% Lidocaine Gel Depth: in the subcutaneous layer Percentage of wound debrided: 100 Instrument Used: 3mm curette Tissue Removed: slough and devitalized tissue Severity: Fat Layer Exposed Amount of bleeding with debridement: Mild Bleeding Controlled with: Pressure Patient tolerated procedure well Assessment/Plan Assessment: Nonhealing nonsurgical chronic wound of the left appiah. Alcohol abuser. Tobacco abuser Plan: Debridement done as documented above. Procedure was well-tolerated. Improving. Continue Promogran with 3M wrap. Leave in place for a week. Elevate lower extremities when seated and in bed. Increase protein intake. Continue other wound care modalities. Follow-up in a week. His questions were answered and he was advised to call with any further questions or concerns. This note was generated with [employer] dictation software. It may contain incorrect words, spelling, and punctuation that were not noted in checking the note before signing. [id number]: [id number] Lucy subq tissue 20 sq cm/<
[2020-06-08 15:14] VITALS: BP 128/92; PULSE 79; TEMP 36.4; BMI 30.7
[2020-06-08 15:40] VITALS: BP 128/92
--- NOTE | 2020-06-09 08:10 | PCM.WC.PN ---
(1) Ulcer of left lower extremity with fat layer exposed Status: Chronic Code(s): L97.922 - Non-pressure chronic ulcer of unspecified part of left lower leg with fat layer exposed (2) ETOH abuse Status: Acute Code(s): F10.10 - Alcohol abuse, uncomplicated (3) Tobacco dependence Status: Acute Code(s): F17.200 - Nicotine dependence, unspecified, uncomplicated Type of Wound Date of Service: 06/08/20 Chief Complaint: Left appiah wound History of Wound: 39-year-old white male graduate from [employer] approximately 15 years ago and injured his left appiah at that time. The wound has open and closed over the years when he gets bumped or hit. Most recently it was opened about 2 weeks ago he saw his regular family doctor and was put on Bactrim DS no cultures were obtained at that time. We will obtain x-ray of the appiah make sure that no bone is involved though it does look more superficial and did obtain cultures to determine why he keeps opening. Sent history that he drinks a sixpack of beer a day and he smokes 1 pack of cigarettes per day Progress of Wound: New concerns at this time. Improving. - Physical Exam Vital Signs Temp Pulse Resp BP 97.6 F L 79 16 128/92 H 06/08/20 15:14 06/08/20 15:14 06/01/20 15:17 06/08/20 15:40 General: Alert, Oriented x3, Cooperative, No apparent distress HEENT: Atraumatic Oral: Moist Mucosa Neck: Supple Lungs: Clear to auscultation Cardiovascular: Regular rate Abdomen: Soft, Non Tender Extremities: No clubbing, No cyanosis, No edema, Peripheral Pulses Normal Skin: Ulcer/ Wound - See nursing documentation, site is almost entirely healed, small amount of slough removed, no signs of obvious infection at this time. Wound Measurements and Assessment WC - Nurse 1 - General Ulcer Measurement Start: 06/01/20 15:17 Freq: Status: Active Protocol: Activity Type Activity Date Activity User E-Sign Co-Sign Detail Recorded Client Recorded Date Recorded By Document 06/08/20 15:14 JENNY [id number] 06/08/20 15:31 JENNY 06/08/20 15:14 Wound Center Nurse 1 [Ulcer Assessment] #1- L APPIAH -Current Size (cm) - Length 0.5 -Current Size (cm) - Width 0.5 -Current Size (cm) - Depth 0.1 -Total Square Cm 0.25 -Wound Margin Distinct, Outline Attached -Granulation Amt Medium (34-66%) -Granulation Quality Red -Necrosis Amt Medium (34-66%) -Necrotic Tissue Type Adherent Slough -Texture (Paty-wound Skin Appearance) Assessed, Scarring -Moisture (Paty-wound Skin Appearance Assessed,Dry/ ) Scaly -Temperature (Paty-wound Skin No Abnormality Appearance) (Pt Warm) -Tenderness on Palpation (Paty-wound No Skin Appearance) -Ulcer Cleansing soap and water -Foul Odor after Cleansing No -Anesthetic Used 4% Lidocaine Solution WC - Nurse 2 - General Ulcer CM Notes Start: 06/01/20 15:17 Freq: Status: Active Protocol: Activity Type Activity Date Activity User E-Sign Co-Sign Detail Recorded Client Recorded Date Recorded By Document 06/08/20 15:36 MW [id number] 06/08/20 15:37 MW 06/08/20 15:36 Wound Center Nurse 2 [Procedure/Treatment] -Time 15:37 -Correct Patient Yes -Correct Side, Site, Position Yes -Correct Procedure Yes -Procedure Performed Yes -Type of Procedure Debridement -Clinical Debridement Subcutaneous -Tissue Removed Subcutaneous -Post Debridement (cm) - Length 0.1 -Post Debridement (cm) - Width 0.1 -Post Debridement (cm) - Depth 0.1 -Total Square (Post) (cm) 0.01 -Area of Debridement (cm) - Length 0.1 -Area of Debridement (cm) - Width 0.1 -Total Square (Area) (cm) 0.01 -Tunneling No -Undermining/Tunneling No -Circular Undermining No -Wound/Ulcer Outcome Not Healed -Ulcer Cleansing Rinsed/ Irrigated with Saline -Foul Odor after Cleansing No -Bioengineered Tissue No -Bleeding Controlled with Pressure -Offloading No -Treatment Response Procedure Tolerated Well -Debridement - Subq, 1st 20sq cm Yes [See Physician Procedure note for Specifics] Pain Scale: 0-10 Numeric [Pain] -Is Patient Pain Free? Yes ERNESTO - Nurse 3 - General Ulcer D/C NN Start: 06/01/20 15:17 Freq: Status: Active Protocol: Activity Type Activity Date Activity User E-Sign Co-Sign Detail Recorded Client Recorded Date Recorded By Document 06/08/20 15:40 RB [id number] 06/08/20 15:44 RB 06/08/20 15:40 Wound Care Nurse 3 [Wound Dressing] #1- L APPIAH -Ulcer Cleansing Rinsed/ Irrigated with Saline -Primary Dressing Applied NonAdherent Contact Layer -Other Dressing abd padded to ankle [Compression Applied] Left -Multi-Layered Wrap Application Multi-Layer Comp - Left ($) [Post Procedure Tolerated] -Treatment Response Procedure Tolerated Well Vital Signs [Blood Pressure] -Blood Pressure (90/60-120/80) 128/92 H -Blood Pressure Mean (mm Hg) 104 -Source Monitor -Position Semi-Fowlers -Blood Pressure Location Left Arm Pain Scale: 0-10 Numeric [Pain] -Is Patient Pain Free? Yes WC - Visit Discharge [Visit Discharge Information] -Discharge Condition Stable -Ambulatory Status Ambulatory -Transportation Private Auto -Medication Reconcilliation completed No & provided to patient/care provider -Clinical Summary of Care Provided Yes Neurological: Neuro grossly intact Psych/Mental Status: Normal Affect, Appropriate, Alert and oriented to time, place, person, mood and affect Debridement Note Post-Debridement Measurements/Treatment WC - Nurse 2 - General Ulcer CM Notes Start: 06/01/20 15:17 Freq: Status: Active Protocol: Activity Type Activity Date Activity User E-Sign Co-Sign Detail Recorded Client Recorded Date Recorded By Document 06/01/20 16:04 MW [id number] 06/01/20 16:07 MW Document 06/08/20 15:36 MW [id number] 06/08/20 15:37 MW 06/01/20 06/08/20 16:04 15:36 Wound Center Nurse 2 #1- L APPIAH -Time 16:05 15:37 -Correct Patient Yes Yes -Correct Side, Site, Position Yes Yes -Correct Procedure Yes Yes -Procedure Performed Yes Yes -Type of Procedure Debridement Debridement -Clinical Debridement Subcutaneous Subcutaneous -Tissue Removed Subcutaneous Subcutaneous -Post Debridement (cm) - Length 0.9 0.1 -Post Debridement (cm) - Width 0.7 0.1 -Post Debridement (cm) - Depth 0.1 0.1 -Total Square (Post) (cm) 0.63 0.01 -Area of Debridement (cm) - Length 0.9 0.1 -Area of Debridement (cm) - Width 0.7 0.1 -Total Square (Area) (cm) 0.63 0.01 -Tunneling No No -Undermining/Tunneling No No -Circular Undermining No No -Wound/Ulcer Outcome Not Healed Not Healed -Ulcer Cleansing Rinsed/ Rinsed/ Irrigated with Irrigated with Saline Saline -Foul Odor after Cleansing No No -Bioengineered Tissue No No -Bleeding Controlled with Pressure Pressure -Offloading No No -Treatment Response Procedure Procedure Tolerated Well Tolerated Well -Debridement - Subq, 1st 20sq cm Yes Yes Pain Scale: 0-10 Numeric Is Patient Pain Free? Yes Yes - Nurse 3 - General Ulcer D/C NN Start: 06/01/20 15:17 Freq: Status: Active Protocol: Activity Type Activity Date Activity User E-Sign Co-Sign Detail Recorded Client Recorded Date Recorded By Document 06/01/20 16:07 MW [id number] 06/01/20 16:08 MW Document 06/08/20 15:40 RB [id number] 06/08/20 15:44 RB 06/01/20 06/08/20 16:07 15:40 Wound Care Nurse 3 #1- L APPIAH -Ulcer Cleansing Rinsed/ Rinsed/ Irrigated with Irrigated with Saline Saline -Foul Odor after Cleansing No -Negative Pressure Wound Therapy N/A -Primary Dressing Applied Aquacel Extra NonAdherent Contact Layer -Other Dressing abd padded to ankle -Primary Dressing Covered/Secured with Dry Gauze -Aquacel Extra 1 Left -Lotion applied to leg before No compression wrap -Multi-Layered Wrap Application Multi-Layer Multi-Layer Comp - Left ($) Comp - Left ($) Treatment Response Procedure Procedure Tolerated Well Tolerated Well Vital Signs Blood Pressure (90/60-120/80) 128/92 H Blood Pressure Mean (mm Hg) 104 Source Monitor Position Semi-Fowlers Blood Pressure Location Left Arm Pain Scale: 0-10 Numeric Is Patient Pain Free? Yes Yes Teaching: Wound Center Dressing Your Wound -Person Taught Patient -Teaching Method Discussion -Response to teaching Verbalize understanding WC - Visit Discharge Discharge Condition Stable Stable Ambulatory Status Ambulatory Ambulatory Transportation Private Auto Private Auto Accompanied by SELF Medication Reconcilliation completed & No No provided to patient/care provider Clinical Summary of Care Provided Yes Yes Wound debrided: Right lower extremity ulcer Laterality: Right Type of Debridement: Excisional debridement Anesthesia Used: 5% Lidocaine Gel Depth: in the subcutaneous layer Percentage of wound debrided: 100 Instrument Used: Intiom curette Tissue Removed: Slough and devitalized tissue Severity: Fat Layer Exposed Amount of bleeding with debridement: Mild Bleeding Controlled with: Pressure Patient tolerated procedure well Assessment/Plan Active Problems ETOH abuse (Acute) Tobacco dependence (Acute) Ulcer of left lower extremity with fat layer exposed (Chronic) Assessment: Nonhealing nonsurgical chronic wound of the left appiah. Alcohol abuser. Tobacco abuser Plan: Debridement done as documented above. Procedure was well-tolerated. Improving. Continue Promogran with 3M wrap. Leave in place for a week. Elevate lower extremities when seated and in bed. Increase protein intake. Continue other wound care modalities. Follow-up in a week. His questions were answered and he was advised to call with any further questions or concerns. This note was generated with [employer] dictation software. It may contain incorrect words, spelling, and punctuation that were not noted in checking the note before signing. [id number]: [id number] Lucy subq tissue 20 sq cm/<
== END 2020-06-25 23:59 ==
LOC: WC 15:15
PROVIDERS: PCP Nurse Practitioner Primary Care; Referring Provider Nurse Practitioner Primary Care; Visit Provider Nurse Practitioner
DX: L97.922 Non-pressure chronic ulcer of unspecified part of left lower leg with fat layer exposed (principal); F10.10 Alcohol abuse, uncomplicated; F17.210 Nicotine dependence, cigarettes, uncomplicated
CPT/HCPCS: 11042; 29581